=== PATIENT | female | born 1980 | race Two or more races ===

== ENCOUNTER 2021-06-30 09:07 | Outpatient (CLI) | payer OTHER | END 2021-06-30 09:12 | disposition home or self-care (01) | LOC: RX STUDY 09:07 | PROVIDERS: ATTEND Internal Medicine Endocrinology, Diabetes & Metabolism | DX: R13.19 Other dysphagia (principal); K44.9 Diaphragmatic hernia without obstruction or gangrene; K22.8 Other specified diseases of esophagus; E04.1 Nontoxic single thyroid nodule ==

== ENCOUNTER 2025-08-23 14:22 | Outpatient (CLI) | payer OTHER | END 2025-08-23 14:26 | disposition home or self-care (01) | LOC: MAMO-SONO 14:22 | PROVIDERS: ATTEND Obstetrics & Gynecology | DX: N60.11 Diffuse cystic mastopathy of right breast (principal); N60.12 Diffuse cystic mastopathy of left breast ==